=== PATIENT | female | born 1995 | race Caucasian/White ===

== ENCOUNTER 2017-03-10 11:13 | Day surgery (SDC) | payer OTHER ==
[2017-03-03 12:23] VITALS: BMI 24.7
[2017-03-10] MEDS ORDERED: LIDOCAINE HCL 2% (20ML MULTI-DOSE VIAL) NR ONE (11:53)
[2017-03-10] MEDS ORDERED: MIDAZOLAM HCL 2 MG/2 ML SINGLE DOSE VIAL ONE ×3 (11:54→12:19)
[2017-03-10] MEDS ORDERED: LIDOCAINE 1% P/F 10 MG/ML VIAL ONE (11:55)
[2017-03-10] MEDS ORDERED: KETOROLAC TROMETHAMINE 30 MG/1 ML VIAL ONE (12:15)
[2017-03-10] MEDS ORDERED: PROPOFOL 20 ML ONE ×2 (12:15→12:36)
[2017-03-10 13:16] VITALS: TEMP 98.5
[2017-03-10 13:55] VITALS: BP 129/79; PULSE 72
--- NOTE | 2017-03-12 12:58 | PATH ---
Surgical Pathology Report Patient Name: ALANNA NEGRETE [facility]. Rec. #: [id number] /Age/Gender: 1995 (Age: 22) / F Account: [id number] Location: [facility] Taken: 03/11/2017 Received: 03/11/2017 Reported: 03/12/2017 Physicians: Justin Wolf M.D. Specimen(s) Received ROCK FROM LEFT HAND Clinical History Left hand mass Final Diagnosis FOREIGN BODY, LEFT HAND, REMOVAL: FOREIGN BODY GROSSLY CONSISTENT WITH ROCK (GROSS ONLY). Electronically Signed Janes Mcclellan M.D. Gross Description Received in formalin labeled "proximal from the left hand," is a 0.4 x 0.3 x 0.3 cm black, irregular foreign body, consistent with a rock. No soft tissue is present. No sections are submitted, gross only. /03/11/2017 saudi03/11/2017
--- NOTE | 2017-03-15 19:11 | OP ---
DATE OF OPERATION: 03/10/2017 PREOPERATIVE DIAGNOSIS: Left hand foreign body/mass. POSTOPERATIVE DIAGNOSIS: Left hand foreign body/mass. OPERATIVE PROCEDURE: Left hand foreign body/mass excision. SURGEON: Justin Wolf MD ANESTHESIA: Local with sedation. COMPLICATIONS: None. ESTIMATED BLOOD LOSS: Minimal. INDICATION FOR PROCEDURE: The patient is a 22-year-old female with the above finding, indicated for operative treatment. Risks, benefits, and alternatives were discussed with the patient at length. Proper informed consent was obtained. PROCEDURE: After proper identification of the patient and the correct operative site, patient was brought to the operating room and placed supine on the operative table. Prominences were well padded. Sedation was given by the anesthesiologist. Local anesthesia was given with 2% lidocaine. Left upper extremity was prepped and draped in the usual sterile fashion. A well -padded tourniquet was placed as well as a sterile prep. An Esmarch bandage was used to exsanguinate the left upper extremity. The tourniquet was inflated to 250 mmHg. A longitudinal incision was made over the area of the prior scar, and the mass was palpated. Incision was taken sharply through the skin with blunt and sharp dissection through the subcutaneous tissues. A foreign body was found to be slightly encapsulated by thickened tissue within the thenar muscle. This was excised in whole and sent for pathological evaluation. Wound was irrigated with saline and repaired with a 5-0 nylon suture. X-rays were taken to confirm complete excision. Patient tolerated the procedure well and was brought to recovery room in stable condition. Iva MICHAEL/[id number]
== END 2017-03-10 13:55 | disposition home or self-care (01) ==
LOC: FASU 11:13
PROVIDERS: ATTEND Orthopaedic Surgery Hand Surgery
PROC: 0KCD0ZZ Extirpation of Matter from Left Hand Muscle, Open Approach (ICD-10-PCS; principal; 2017-03-10 12:45)
DX: M79.5 Residual foreign body in soft tissue (principal)
CPT/HCPCS: 73130-TC-LT; 84703; 88300-TC